=== PATIENT | female | born 1935 | race Caucasian/White ===

== ENCOUNTER → 2018-12-01 | Outpatient (CLI) | payer MEDICARE, BC ==
[~2018-12-01] MED LIST: AMOCLA875 PO; AMOX500; CONEST.625; Diovan40 MG PO; HYDACE10B PO; HYDSUL200 PO; LEVSOD175; LEVSOD25; METO25ER; PHENA200; ROSU10TA
== END | disposition home or self-care (01) ==
LOC: PLD 10:38 → LAB SHORT 10:38
DX: L57.0 Actinic keratosis (principal)
CPT/HCPCS: 88305

== ENCOUNTER → 2019-11-06 | Outpatient (CLI) | payer MEDICARE, BC, OTHER | LOC: LAB EV 15:55 → LAB SHORT 15:55 | DX: R05 Cough (principal); Z20.828 Contact with and (suspected) exposure to other viral communicable diseases | CPT/HCPCS: U0003 ==

== ENCOUNTER → 2020-03-14 | Outpatient (CLI) | payer MEDICARE, BC | END | disposition home or self-care (01) | LOC: LAB SHORT 11:10 → PLD 11:10 | DX: D04.39 Carcinoma in situ of skin of other parts of face (principal) | CPT/HCPCS: 88305 ==

== ENCOUNTER 2021-04-28 07:30 | Day surgery (SDC) | payer MEDICARE, BC ==
[~2021-04-28] VITALS: Ht 165.1 cm; Wt 70.9 kg
--- NOTE | 2021-04-28 08:05 | NUR ---
04/28/21 0805 Daren Arreola NOTIFIED OF ELEVATED BLOOD PRESSURES/ NO NEW ORDERS RECIEVED.
--- NOTE | 2021-04-28 09:31 | NUR ---
04/28/21 0931 Nicholas Yin 0.15MG EPI ADDED TO 30ML'S 0.5% BUPIVACAINE TO ACHIEVE SOLUTION OF 1:200,000.
--- NOTE | 2021-04-28 10:40 | NUR ---
04/28/21 1040 [place]ks[place] O2 SATS DIP TO 89% NASAL CANNULA ADDED AT 2L AND ENCOURAGED DEEP BREATH COUGH . O2 SAT INCREASE TO 95%
== END 2021-04-28 12:05 | disposition home or self-care (01) ==
LOC: ORSCSDS 07:30
PROVIDERS: Orthopaedic Surgery
PROC: 0PSJ04Z Reposition Left Radius with Internal Fixation Device, Open Approach (ICD-10-PCS; principal; 2021-04-28 09:00)
DX: S52.502A Unspecified fracture of the lower end of left radius, initial encounter for closed fracture (principal); E03.9 Hypothyroidism, unspecified; Z79.899 Other long term (current) drug therapy; G47.33 Obstructive sleep apnea (adult) (pediatric)
CPT/HCPCS: A9270; C1713; J0171; J0690; J1100; J1885; J2270; J2405; J2704; J3010; J7120

== ENCOUNTER → 2021-11-13 | Outpatient (CLI) | payer MEDICARE, BC | END | disposition home or self-care (01) | LOC: PLD 12:41 → LAB SHORT 12:41 | DX: L57.0 Actinic keratosis (principal); L90.5 Scar conditions and fibrosis of skin | CPT/HCPCS: 88305 ==

== ENCOUNTER → 2022-05-15 | Outpatient (CLI) | payer MEDICARE, BC | END | disposition home or self-care (01) | LOC: PLD 14:50 → LAB SHORT 14:50 | DX: C44.311 Basal cell carcinoma of skin of nose (principal); L57.0 Actinic keratosis | CPT/HCPCS: 88305 ==

== ENCOUNTER → 2023-09-24 | Outpatient (CLI) | payer MEDICARE, BC ==
[2023-09-24 16:32] LABS: BASOPHILS PERCENT AUTO 0 % (0-2); EOSINOPHILS PERCENT AUTO 0 % (0-6); Hematocrit 43.9 % (33.0-51.0); Hemoglobin 14.7 g/dL (11.5-16.0); IMMATURE GRAN ABSOLUTE AUTO 0.03 K/mm3 (0.00-0.10); IMMATURE GRAN PERCENT AUTO 0 % (0-1); LYMPHOCYTES ABSOLUTE AUTO 1.85 K/mm3 (0.84-5.20); LYMPHOCYTES PERCENT AUTO 17 % (21-46); MONOCYTES PERCENT AUTO 2 % (4-13); Mean Corpuscular HGB 30.3 pg (26.0-34.0); Mean Corpuscular HGB Conc 33.5 g/dL (31.5-36.5); Mean Corpuscular Volume 91 fL (80-100); Mean Platelet Volume 10.2 fL (9.1-12.4); NEUTROPHILS ABSOLUTE AUTO 8.74 K/mm3 (1.96-9.15); NEUTROPHILS PERCENT AUTO 81 % (41-73); Platelet Count 288 K/mm3 (150-400); RDW Standard Deviation 42.5 fL (35.1-46.3); Red Blood Cell Count 4.85 M/mm3 (3.80-5.20); White Blood Cell Count 10.82 K/mm3 (4.00-11.30)
[2023-09-24 16:53] LABS: Albumin, Blood 3.1 g/dL (3.4-5.0); Albumin/Globulin Ratio 0.7 (0.8-1.8); Bilirubin, Total 0.3 mg/dL (0.1-1.0); Bun/Creatinine Ratio 15.5 (12.0-20.0); Calcium, Blood 9.4 mg/dL (8.5-10.1); Creatinine, Blood 1.03 mg/dL (0.40-1.00); Globulin, Blood 4.6 g/dL (2.2-4.0); Potassium, Blood 3.9 mmol/L (3.5-5.5); Thyroid Stimulating Hormone 8.519 uIU/mL (0.360-4.800); Total Protein, Blood 7.7 g/dL (6.4-8.2)
== END ==
LOC: LAB 16:28 → LAB SHORT 16:28
PROVIDERS: Physician Assistant
DX: I10 Essential (primary) hypertension (principal); R53.83 Other fatigue
CPT/HCPCS: 80053; 84443; 85025

== ENCOUNTER → 2023-10-09 | Outpatient (CLI) | payer MEDICARE, BC ==
[2023-10-09 13:00] LABS: BASOPHILS PERCENT AUTO 0 % (0-2); EOSINOPHILS PERCENT AUTO 0 % (0-6); Hematocrit 42.1 % (33.0-51.0); Hemoglobin 13.9 g/dL (11.5-16.0); IMMATURE GRAN ABSOLUTE AUTO 0.01 K/mm3 (0.00-0.10); IMMATURE GRAN PERCENT AUTO 0 % (0-1); LYMPHOCYTES ABSOLUTE AUTO 2.14 K/mm3 (0.84-5.20); LYMPHOCYTES PERCENT AUTO 33 % (21-46); MONOCYTES ABSOLUTE AUTO 0.42 K/mm3 (0.16-1.47); MONOCYTES PERCENT AUTO 7 % (4-13); Mean Corpuscular HGB 30.1 pg (26.0-34.0); Mean Corpuscular Volume 91 fL (80-100); Mean Platelet Volume 10.5 fL (9.1-12.4); NEUTROPHILS ABSOLUTE AUTO 3.93 K/mm3 (1.96-9.15); NEUTROPHILS PERCENT AUTO 60 % (41-73); Platelet Count 258 K/mm3 (150-400); RDW Coefficient Variation 12.7 % (11.7-14.2); RDW Standard Deviation 42.3 fL (35.1-46.3); Red Blood Cell Count 4.62 M/mm3 (3.80-5.20)
[2023-10-09 13:18] LABS: Bun/Creatinine Ratio 13.8 (12.0-20.0); Calcium, Blood 9.2 mg/dL (8.5-10.1); Creatinine, Blood 0.87 mg/dL (0.40-1.00); Thyroid Stimulating Hormone 0.12 uIU/mL (0.360-4.800)
== END ==
LOC: LAB 12:55 → LAB SHORT 12:55
PROVIDERS: Physician Assistant Surgical
DX: E03.9 Hypothyroidism, unspecified (principal); R51.9 Headache, unspecified
CPT/HCPCS: 80048; 84443; 85025

== ENCOUNTER 2024-05-04 08:58 | Day surgery (SDC) | payer MEDICARE, BC ==
[~2024-05-04] VITALS: Ht 165.1 cm; Wt 68.5 kg
[2024-05-04] VITALS (8 sets, daily range): BP systolic 131–170; BP diastolic 53–84
[~2024-05-04 08:58] MED LIST changes: +CALCIUM CITRATE PO; +EUTHYROX125 MCG PO; +FISH OIL 1,0001 EA10 PO; +Isosorbide Mono30 MG PO; -LEVSOD175; +METO25ER PO; +NITR.4SL SL; +Vitamin D1000 UNI1 PO
[2024-05-04] MEDS ORDERED: Aspirin 81 MG Chew ONE ×2 (09:09→10:42)
[2024-05-04] MEDS ORDERED: NS 1,000 ML IV ONE ×2 (09:12→09:35)
[2024-05-04] MEDS ORDERED: Verapamil HCL 2.5 MG/ML 2ML Injection ONE (09:12)
[2024-05-04] MEDS ORDERED: Heparin Sodium 1000 Units/ML 10ML MDV ONE (09:12)
[2024-05-04] MEDS ORDERED: NS 250 ML IV ONE (09:12)
[2024-05-04] MEDS ORDERED: Nitroglycerin 2 MG/20 ML BTL ONE (09:13)
[2024-05-04] MEDS ORDERED: ASPI81CH PO (09:14)
[2024-05-04] MEDS ORDERED: Midazolam HCl 1MG / ML 2ML Vial ONE (09:35)
[2024-05-04] MEDS ORDERED: FentaNYL Citrate 50 MCG/ML 2 ML Injection ONE (09:35)
[2024-05-04] MEDS ORDERED: Tirofiban HCL Monohydrate 3.75 MG/15 ML Vial ONE (10:20)
[2024-05-04] MEDS ORDERED: Ticagrelor 90 MG TABLET ONE (10:41)
[2024-05-04] MEDS ORDERED: Labetalol HCL 5 MG/ML 4ML Injection (Single Dose) ONE (10:44)
--- NOTE | 2024-05-04 11:21 | NUR ---
PT RETURNS TO RECOVERY ROOM, ALERT AND ORIENTED. PT. SITTING UP IN RECLINER. VSS UPON ARRIVAL TO UNIT. 14CC IN TR BAND TO RIGHT RADIAL.SPO2 TO DISTAL FINGER . PT. UP TO USE THE BATHROOM WITH OUT DIFFICULTY. DENIES ANY CHEST PAIN OR PRESSURE. FAMILY TO BEDSIDE. REFRESHMENTS PROVIDED. NEW PRESCRIPTION FOR BRILINTA CALLED IN TO [facility].
[2024-05-04] MEDS ORDERED: TICA90TA PO (11:25)
--- NOTE | 2024-05-04 12:02 | NUR ---
tr band delfation intitated. pt vss remain stable. family remain at bedside. additional refreshements offered.
--- NOTE | 2024-05-04 12:07 | NUR ---
TR BAND FULLY DEFLATED AT THIS TIME.
--- NOTE | 2024-05-04 12:29 | NUR ---
LUNCH TRAY PROVIDED TO PT.
--- NOTE | 2024-05-04 12:41 | NUR ---
DISCHARGE INSTRUCTIONS REVIEWED IN DETAIL WITH PT AND HER FAMILY. NO FURTHER QUESTIONS AT THIS TIME. REMINDED TO EXTRUSION TECHNICIAN PRESCRIPTION FROM [facility] THIS AFTERNOON FOR PM DOSE OF BRILINTA. PT. VERBALIZED UNDERSTANDING. PT EATING LUNCH AT THIS TIME TR BAND REMAINS DEFLATED AND IN PLACE UNCHANGED FROM PREVIOUS ASSESSMENTS.
--- NOTE | 2024-05-04 13:04 | NUR ---
IV REMOVED CATHETER INTACT. PT. UP TO GET DRESSED WITH MINIMAL ASSIST FROM FAMILY. VSS REMAIN STABLE. PT. TR BAND REMOVED AFTER GETTING DRESSED SITE WNL, NO OOZING AT THIS TIME. SMALL BRUISE AT ACCESS SITE. PT REMINDED OF INSTRUCTIONS SURROUNDING COMPLICATIONS. PT. AND FAMILY VERBALIZED UNDERSTANDING. ARM BOARD IN PLACE. ALL BELONGINGS TAKEN WITH PT TO EXIT. PT DAUGHTER TO DRIVE PT HOME.
== END 2024-05-04 13:15 | disposition home or self-care (01) ==
LOC: MHTC 08:58
DX: I25.118 Atherosclerotic heart disease of native coronary artery with other forms of angina pectoris (principal); I25.84 Coronary atherosclerosis due to calcified coronary lesion; E03.9 Hypothyroidism, unspecified; Z88.5 Allergy status to narcotic agent; Z79.899 Other long term (current) drug therapy
CPT/HCPCS: 76937; 85347; 93458; 99152; 99153; A9270; C1725; C1769; C1874; C1887; C1894; C9600; J1644; J2250; J3010; J3246; J7030; J7050; Q9967